=== PATIENT | female | born 1975 | race Caucasian/White ===

== ENCOUNTER 2018-07-07 14:18 | Day surgery (SDC) | payer BC ==
[~2018-07-07] VITALS: Ht 167.6 cm; Wt 82.8 kg
[~2018-07-07 14:18] MED LIST: (None)20 M1 PO; ALBIPROI INH; ALBU.083IS IH; ALBU90OI6 INH; ALBU90OI61 INH; ALPR.25 PO; AZIT250 PO; AZIT500 PO; BCP; BIRTH CONTROL PILLS; CETI5; COMBIVENT RESPIM4 GM INH; CYCL10 PO; DULERA 200 MCG/13 GM INH; ESTR2 PO; HYDACE5 PO; IBUP800 PO; LORA.5 PO; LORA2 PO; MECL25; MECL25 PO; MONT10T PO; MULVITMIND PO; NAPR500 PO; NAPR550 PO; OXYACE5T PO; OXYC5 PO; PANT20; PRED10 PO; PRED20 PO; PROM25 PO; PROM25S PR; PTU PO; TRAM50 PO; Zithromax250 MG PO; [UNRECOGNIZED DRUG - OTHER]; [UNRECOGNIZED DRUG - OTHER]; [UNRECOGNIZED DRUG - OTHER]; [UNRECOGNIZED DRUG - OTHER]; [UNRECOGNIZED DRUG - OTHER]
[2018-07-07] MEDS ORDERED: ALBU90OI61 INH (14:35)
[2018-07-07] MEDS ORDERED: QVAR REDIHALE10.6 G1 IH (14:35)
--- NOTE | 2018-07-07 17:05 | NUR ---
07/07/18 1705 Harriet Shea AT 1555 PT WAS DC'D HOME WITH INSTRUCTIONS FOR CARE. PAIN EVAL GIVEN WITH RETURN ENVELOPE, TUAN PO FLUIDS WELL. VSS AND PT AMB TO CAR W/SBA X1. BANDAID TO LOW BBACK C/D/I
== END 2018-07-07 15:55 | disposition home or self-care (01) ==
LOC: ORSCSDS 14:18
PROVIDERS: Anesthesiology
PROC: 3E0R33Z Introduction of Anti-inflammatory into Spinal Canal, Percutaneous Approach (ICD-10-PCS; principal; 2018-07-07 15:15)
DX: M51.16 Intervertebral disc disorders with radiculopathy, lumbar region (principal); K21.9 Gastro-esophageal reflux disease without esophagitis; E03.9 Hypothyroidism, unspecified; J45.909 Unspecified asthma, uncomplicated; F32.9 Major depressive disorder, single episode, unspecified; F17.210 Nicotine dependence, cigarettes, uncomplicated; Z79.899 Other long term (current) drug therapy
CPT/HCPCS: J1040

== ENCOUNTER → 2019-05-24 | Outpatient (CLI) | payer BC, OTHER ==
[~2019-05-24] MED LIST changes: +QVAR REDIHALE10.6 G1 IH
[2019-05-24 20:42] LABS: BASOPHILS ABSOLUTE AUTO 0.05 K/mm3 (0.00-0.23); BASOPHILS PERCENT AUTO 1 % (0-2); EOSINOPHILS ABSOLUTE AUTO 0.16 K/mm3 (0.00-0.68); EOSINOPHILS PERCENT AUTO 2 % (0-6); Hematocrit 42.6 % (33.0-51.0); Hemoglobin 13.7 g/dL (11.5-16.0); IMMATURE GRAN ABSOLUTE AUTO 0.03 K/mm3 (0.00-0.10); IMMATURE GRAN PERCENT AUTO 0 % (0-1); LYMPHOCYTES ABSOLUTE AUTO 3.41 K/mm3 (0.84-5.20); LYMPHOCYTES PERCENT AUTO 40 % (21-46); MONOCYTES ABSOLUTE AUTO 0.45 K/mm3 (0.16-1.47); MONOCYTES PERCENT AUTO 5 % (4-13); Mean Corpuscular HGB 27.1 pg (26.0-34.0); Mean Corpuscular HGB Conc 32.2 g/dL (31.5-36.5); Mean Corpuscular Volume 84 fL (80-100); Mean Platelet Volume 11.6 fL (9.1-12.4); NEUTROPHILS ABSOLUTE AUTO 4.37 K/mm3 (1.96-9.15); NEUTROPHILS PERCENT AUTO 52 % (41-73); Platelet Count 317 K/mm3 (150-400); RDW Coefficient Variation 13.8 % (11.7-14.2); RDW Standard Deviation 42.4 fL (35.1-46.3); Red Blood Cell Count 5.05 M/mm3 (3.80-5.20); White Blood Cell Count 8.47 K/mm3 (4.00-11.30)
[2019-05-24 21:00] LABS: International Normalized Ratio 0.91; Prothrombin Time Results 9.7 Sec (9.7-11.5)
[2019-05-24 21:02] LABS: Alanine Aminotransfer (ALT/SGP 34 U/L (12-78); Albumin, Blood 3.7 g/dL (3.4-5.0); Albumin/Globulin Ratio 1.1 (0.8-1.8); Alk Phos 143 U/L (50-136); Anion Gap 8 mmol/L (6-16); Aspartate Aminotrans (AST/SGOT 18 U/L (12-37); Bilirubin, Total 0.2 mg/dL (0.1-1.0); Blood Urea Nitrogen 10 mg/dL (8-24); Bun/Creatinine Ratio 15.5 (12.0-20.0); CO2, Blood 24 mmol/L (21-32); Calcium, Blood 8.5 mg/dL (8.5-10.1); Chloride, Blood 107 mmol/L (98-108); Creatinine, Blood 0.65 mg/dL (0.40-1.00); Globulin, Blood 3.3 g/dL (2.2-4.0); Glomerular Filtration Rate >60 (60-); Glucose, Blood 112 mg/dL (70-99); Potassium, Blood 3.9 mmol/L (3.5-5.5); Sodium, Blood 139 mmol/L (136-145)
[2019-05-24 21:08] LABS: Thyroid Stimulating Hormone <0.005 uIU/mL (0.360-4.800)
== END | disposition home or self-care (01) ==
LOC: LAB SHORT 20:04 → LAB 20:04
PROVIDERS: Family Medicine
DX: Z01.89 Encounter for other specified special examinations (principal); Z86.39 Personal history of other endocrine, nutritional and metabolic disease
CPT/HCPCS: 80053; 84443; 85025; 85610; 85730

== ENCOUNTER 2019-06-01 08:45 | Day surgery (SDC) | payer OTHER ==
--- NOTE | 2019-06-01 12:12 | NUR ---
ON ARRIVAL TO [facility] PT C/O OF MUSCLE SPASMS IN LEGS AND BACK ALONG WITH NUMBNESS AND TINGLING IN FINGERS AND TOES. NUERO CHECKS FOLLOW: VEST PRESSER BILATERALLY EQUAL. PUSH PULLS WITH SLIGHT WEAKNESS IN RLE. PT STATES SHE NORMALLY TAKES ROBAXIN AND IBUPROFEN FOR THE MUSCLE SPASMS AND PAIN. SPOKE TO DR LEWIS AND RECEIVED ORDERS FOR MEDS. PT TOOK ROBAXIN. HOB UP TO 30 DEGREES, PT WAS C/O OF HEADACHE, PROVIDED COFFEE AND H.A. RESOLVED. PT STATED AFTER RECEIVING ROBAXIN AND REPOSTIONING SOME OF THE TINGLING AND SPASMS HAD RESOLVED.
--- NOTE | 2019-06-01 12:21 | NUR ---
1150 AT TIME OF DISCHARGE PT FORGOT INSTRUCTIONS, BANDAID SITE TO BACK NO BLEEDING OR SWELLING, NO CHANGE IN NUERO CHECKS. CALL OUT TO PATIENT TO SEE HOW SHE WANT S TO RECEIVE DISCHARGE INSTRUCTIONS.
== END 2019-06-01 23:20 | disposition home or self-care (01) ==
LOC: RAD 08:45 → CT 10:00 → RAD 23:20
DX: M51.26 Other intervertebral disc displacement, lumbar region (principal); G89.29 Other chronic pain; J45.909 Unspecified asthma, uncomplicated; F17.210 Nicotine dependence, cigarettes, uncomplicated; E05.00 Thyrotoxicosis with diffuse goiter without thyrotoxic crisis or storm; S39.012D Strain of muscle, fascia and tendon of lower back, subsequent encounter; Z98.1 Arthrodesis status; Z91.030 Bee allergy status; Z91.040 Latex allergy status; Z91.048 Other nonmedicinal substance allergy status; Z91.018 Allergy to other foods; Z79.899 Other long term (current) drug therapy
CPT/HCPCS: 62304; 72132; A9270-GY; Q9966

== ENCOUNTER → 2021-04-14 | Outpatient (CLI) | payer OTHER ==
[2021-04-15 14:30] LABS: Thyroid Stimulating Hormone <0.005 uIU/mL (0.360-4.800); Triiodothyronine, Free 2.62 pg/mL (2.18-3.98)
== END | disposition home or self-care (01) ==
LOC: LAB SHORT 14:05
PROVIDERS: Family Medicine
DX: E05.00 Thyrotoxicosis with diffuse goiter without thyrotoxic crisis or storm (principal)
CPT/HCPCS: 84443; 84481

== ENCOUNTER 2022-06-30 14:13 | Emergency (ER) | payer OTHER ==
[~2022-06-30] VITALS: Ht 167.6 cm; Wt 81.7 kg
[2022-06-30] MEDS ORDERED: METHI10 PO (15:16)
[2022-06-30] MEDS ORDERED: NEURONTIN300 MG PO (15:16)
[2022-06-30] MEDS ORDERED: Methocarbamol500 MG PO (15:16)
[2022-06-30] MEDS ORDERED: MONT10T PO (15:16)
[2022-06-30] MEDS ORDERED: Cetirizine HCl10 MG PO (15:16)
[2022-06-30] MEDS ORDERED: IBU600 M1 PO (16:24)
[2022-06-30] MEDS ORDERED: Norco 5-325 Ta1 EACH PO (16:24)
[2022-06-30] MEDS ORDERED: CYCL10 PO (16:24)
== END 2022-06-30 16:45 | disposition home or self-care (01) ==
LOC: ER 14:13
DX: R51.9 Headache, unspecified (principal); M54.2 Cervicalgia; Z79.899 Other long term (current) drug therapy; Z91.040 Latex allergy status; Z91.018 Allergy to other foods; V89.2XXA Person injured in unspecified motor-vehicle accident, traffic, initial encounter
CPT/HCPCS: 72070; 72125; A9270; J1885

== ENCOUNTER → 2024-01-31 | Outpatient (CLI) | payer OTHER ==
[~2024-01-31] MED LIST changes: +Cetirizine HCl10 MG PO; +IBU600 M1 PO; +METHI10 PO; +Methocarbamol500 MG PO; +NEURONTIN300 MG PO; +Norco 5-325 Ta1 EACH PO
[2024-01-31 19:59] LABS: Free Thyroxine 1.36 ng/dL (0.70-1.60)
[2024-01-31 20:01] LABS: Thyroid Stimulating Hormone <0.005 uIU/mL (0.360-4.800)
== END ==
LOC: LAB 18:15 → LAB SHORT 18:15
PROVIDERS: Family Medicine
DX: E05.00 Thyrotoxicosis with diffuse goiter without thyrotoxic crisis or storm (principal)
CPT/HCPCS: 84439; 84443

== ENCOUNTER → 2024-04-10 | Outpatient (CLI) | payer OTHER ==
[2024-04-10 19:52] LABS: BASOPHILS ABSOLUTE AUTO 0.07 K/mm3 (0.00-0.23); BASOPHILS PERCENT AUTO 1 % (0-2); EOSINOPHILS ABSOLUTE AUTO 0.28 K/mm3 (0.00-0.68); EOSINOPHILS PERCENT AUTO 3 % (0-6); Hematocrit 42.9 % (33.0-51.0); Hemoglobin 13.9 g/dL (11.5-16.0); IMMATURE GRAN ABSOLUTE AUTO 0.02 K/mm3 (0.00-0.10); IMMATURE GRAN PERCENT AUTO 0 % (0-1); LYMPHOCYTES ABSOLUTE AUTO 4.05 K/mm3 (0.84-5.20); LYMPHOCYTES PERCENT AUTO 43 % (21-46); MONOCYTES ABSOLUTE AUTO 0.59 K/mm3 (0.16-1.47); MONOCYTES PERCENT AUTO 6 % (4-13); Mean Corpuscular HGB Conc 32.4 g/dL (31.5-36.5); Mean Corpuscular Volume 87 fL (80-100); Mean Platelet Volume 10.9 fL (9.1-12.4); NEUTROPHILS ABSOLUTE AUTO 4.45 K/mm3 (1.96-9.15); NEUTROPHILS PERCENT AUTO 47 % (41-73); Platelet Count 278 K/mm3 (150-400); RDW Coefficient Variation 13.4 % (11.7-14.2); Red Blood Cell Count 4.96 M/mm3 (3.80-5.20); White Blood Cell Count 9.46 K/mm3 (4.00-11.30)
[2024-04-10 20:12] LABS: Alanine Aminotransfer (ALT/SGP 20 U/L (12-78); Albumin, Blood 4.1 g/dL (3.4-5.0); Albumin/Globulin Ratio 1.4 (0.8-1.8); Alk Phos 116 U/L (50-136); Anion Gap 8 mmol/L (3-11); Aspartate Aminotrans (AST/SGOT 15 U/L (12-37); Bilirubin, Total 0.3 mg/dL (0.1-1.0); Blood Urea Nitrogen 12 mg/dL (8-24); Bun/Creatinine Ratio 14.6 (12.0-20.0); CHOL/HDL RATIO 3.1; CO2, Blood 26 mmol/L (21-32); Chloride, Blood 112 mmol/L (98-108); Cholesterol 185 mg/dL (50-200); Creatinine, Blood 0.82 mg/dL (0.40-1.00); Globulin, Blood 2.9 g/dL (2.2-4.0); Glomerular Filtration Rate 89 (60-); Glucose, Blood 97 mg/dL (70-99); HDL Cholesterol 60 mg/dL (>39); LDL/HDL RATIO 1.7; Low Density Lipoprotein Chol 102 mg/dL (0-110); Potassium, Blood 4.4 mmol/L (3.5-5.5); Sodium, Blood 142 mmol/L (136-145); Triglycerides 116 mg/dL (30-160); Very Low Density Lipoprot Chol 23 mg/dL (6-32)
== END | disposition home or self-care (01) ==
LOC: LAB 19:33 → LAB SHORT 19:33
PROVIDERS: Family Medicine
DX: Z51.81 Encounter for therapeutic drug level monitoring (principal); Z79.899 Other long term (current) drug therapy
CPT/HCPCS: 80053; 80061; 82306; 83036; 85025

== ENCOUNTER → 2024-07-24 | Outpatient (CLI) | payer OTHER | END | disposition home or self-care (01) | LOC: LAB 17:36 → LAB SHORT 17:36 | DX: E05.00 Thyrotoxicosis with diffuse goiter without thyrotoxic crisis or storm (principal) | CPT/HCPCS: 84443 ==

== ENCOUNTER → 2025-04-30 | Outpatient (CLI) | payer OTHER ==
[2025-04-30 18:05] LABS: BASOPHILS ABSOLUTE AUTO 0.08 K/mm3 (0.00-0.23); BASOPHILS PERCENT AUTO 1 % (0-2); EOSINOPHILS ABSOLUTE AUTO 0.37 K/mm3 (0.00-0.68); EOSINOPHILS PERCENT AUTO 4 % (0-6); Hematocrit 43.0 % (33.0-51.0); Hemoglobin 13.6 g/dL (11.5-16.0); IMMATURE GRAN ABSOLUTE AUTO 0.02 K/mm3 (0.00-0.10); IMMATURE GRAN PERCENT AUTO 0 % (0-1); LYMPHOCYTES ABSOLUTE AUTO 3.67 K/mm3 (0.84-5.20); LYMPHOCYTES PERCENT AUTO 40 % (21-46); MONOCYTES ABSOLUTE AUTO 0.52 K/mm3 (0.16-1.47); MONOCYTES PERCENT AUTO 6 % (4-13); Mean Corpuscular HGB Conc 31.6 g/dL (31.5-36.5); Mean Corpuscular Volume 86 fL (80-100); NEUTROPHILS ABSOLUTE AUTO 4.50 K/mm3 (1.96-9.15); NEUTROPHILS PERCENT AUTO 49 % (41-73); NRBC ABSOLUTE 0.00 K/mm3 (0.00-0.02); NRBC Auto 0.0 /100 WBC (0.0-0.2); Platelet Count 307 K/mm3 (150-400); RDW Coefficient Variation 12.8 % (11.7-14.2); RDW Standard Deviation 40.2 fL (35.1-46.3)
[2025-04-30 20:35] LABS: Alanine Aminotransfer (ALT/SGP 24 U/L (12-78); Albumin, Blood 3.7 g/dL (3.4-5.0); Albumin/Globulin Ratio 1.3 (0.8-1.8); Anion Gap 7 mmol/L (3-11); Aspartate Aminotrans (AST/SGOT 14 U/L (12-37); Bilirubin, Total 0.3 mg/dL (0.1-1.0); Blood Urea Nitrogen 13 mg/dL (8-24); CHOL/HDL RATIO 2.8; CO2, Blood 28 mmol/L (21-32); Calcium, Blood 8.8 mg/dL (8.5-10.1); Chloride, Blood 108 mmol/L (98-108); Cholesterol 158 mg/dL (50-200); Creatinine, Blood 0.73 mg/dL (0.40-1.00); Globulin, Blood 2.8 g/dL (2.2-4.0); Glucose, Blood 93 mg/dL (70-99); HDL Cholesterol 56 mg/dL (>39); LDL/HDL RATIO 1.4; Low Density Lipoprotein Chol 78 mg/dL (0-110); Potassium, Blood 3.8 mmol/L (3.5-5.5); Sodium, Blood 139 mmol/L (136-145); Thyroid Stimulating Hormone <0.005 uIU/mL (0.360-4.800); Total Protein, Blood 6.5 g/dL (6.4-8.2); Triglycerides 120 mg/dL (30-160); Very Low Density Lipoprot Chol 24 mg/dL (6-32)
== END ==
LOC: LAB SHORT 17:31 → LAB 17:31
PROVIDERS: Family Medicine
DX: Z79.899 Other long term (current) drug therapy (principal); E05.00 Thyrotoxicosis with diffuse goiter without thyrotoxic crisis or storm
CPT/HCPCS: 80053; 80061; 82306; 83036; 84443; 85025

== ENCOUNTER → 2025-05-14 | Outpatient (CLI) | payer OTHER ==
[2025-05-15 09:12] LABS: Thyroid Stimulating Hormone <0.005 uIU/mL (0.360-4.800)
== END | disposition home or self-care (01) ==
LOC: LAB 17:57 → LAB SHORT 17:57
PROVIDERS: Family Medicine
DX: E05.00 Thyrotoxicosis with diffuse goiter without thyrotoxic crisis or storm (principal)
CPT/HCPCS: 84439; 84443